=== PATIENT | male | born 1965 | race Caucasian/White ===

== ENCOUNTER 2021-10-01 10:14 | Outpatient (CLI) | payer OTHER, SELFPAY ==
--- NOTE | ~2021-10-01 | XR_ITS ---
XR lumbar spine 2-3V DATE: 10/01/2021 10:37 INDICATION: Chronic back pain. No injury. TECHNIQUE: AP, lateral, coned lateral lumbosacral views COMPARISON: 12/02/2005 lumbar spine FINDINGS: The lumbar vertebrae are normally aligned. No fracture or bone destruction or spondylolisth esis. The lumbar pedicles are intact. There is moderately severe degenerative disc disease at L1-2 and L5-S1. There is minimal degenerative disc disease at the remaining lumbar interspaces. The sacroiliac joints are intact. IMPRESSION: Moderately severe degenerative disc disease at L1-2 and L5-S1 Reviewed, dictated and finalized at location A.
--- NOTE | ~2021-10-01 | XR_ITS ---
XR thoracic spine 2V DATE: 10/01/2021 10:37 INDICATION: Back pain, radiculopathy TECHNIQUE: AP, lateral and swimmer views COMPARISON: 10/01/2021 lumbar spine FINDINGS: There is minimal levoscoliosis of the upper thoracic spine. No fracture or dislocation or b one destruction. The thoracic pedicles are intact. No paraspinal soft tissue thickening. IMPRESSION: No significant abnormality Reviewed, dictated and finalized at location A. IMPRESSION: No significant abnormality
--- NOTE | ~2021-10-01 | XR_ITS ---
XR cervical spine 4-5V DATE: 10/01/2021 10:37 INDICATION: Chronic neck and back pain. No injury. TECHNIQUE: AP, open-mouth, lateral, swimmer views COMPARISON: 03/07/2016 cervical spine FINDINGS: C1 and C2 are normally aligned and the odontoid process is intact. No fracture or dislocati on or locked facet or prevertebral soft tissue swelling. There is minimal anterolisthesis at C4-5 and C5-6. There is mild degenerative disc disease at C5-6 an d moderate moderate degenerative disc disease at C6-7. There is degenerative change at the apophyseal joints, particularly at C5-6 and C6-7. IMPRESSION: Cervical spondylosis Reviewed, dictated and finalized at location A. IMPRESSION: Cervical spondylosis
== END 2021-10-01 10:15 | disposition home or self-care (01) ==
PROVIDERS: PCP Pain Medicine Interventional Pain Medicine; Visit Provider Pain Medicine Interventional Pain Medicine
DX: F33.1 Major depressive disorder, recurrent, moderate (principal); F41.1 Generalized anxiety disorder; G89.4 Chronic pain syndrome; M47.22 Other spondylosis with radiculopathy, cervical region; M47.23 Other spondylosis with radiculopathy, cervicothoracic region; M47.24 Other spondylosis with radiculopathy, thoracic region; M51.37 Other intervertebral disc degeneration, lumbosacral region; M51.36 Other intervertebral disc degeneration, lumbar region
CPT/HCPCS: 72050; 72070; 72100

== ENCOUNTER 2022-12-29 11:40 | Outpatient (CLI) | payer OTHER, SELFPAY ==
--- NOTE | ~2022-12-29 | XR_ITS ---
XR thoracic spine 3V DATE: 12/29/2022 12:08 INDICATION: Right shoulder pain. Back pain. TECHNIQUE: AP, lateral, swimmer views COMPARISON: None FINDINGS: There is degenerative spurring of the thoracic spine, most pronounced at the thoracolumbar area. No fracture or dislocation or bone destruction is evident. The thoracic pedicles are intact. No paraspinal soft tissue thickening. IMPRESSION: Degenerative spurring; no fracture or bone destruction is detected Reviewed, dictated and finalized at location A.
--- NOTE | ~2022-12-29 | XR_ITS ---
XR lumbar spine 2-3V DATE: 12/29/2022 12:08 INDICATION: Back pain TECHNIQUE: AP, lateral, coned lateral lumbosacral views COMPARISON: None FINDINGS: Moderate degenerative disc disease and spurring at L1-2. Moderately severe degenerative disc disease at L5-S1. No fracture or bone destruction is evident. The lumbar pedicles are intact. No spondylolisthesis. The sacroiliac joints are intact. IMPRESSION: Degenerative disc disease, greatest at L1-2 and L5-S1 Reviewed, dictated and finalized at location A.
--- NOTE | ~2022-12-29 | XR_ITS ---
XR cervical spine 4-5V DATE: 12/29/2022 12:07 INDICATION: Right shoulder pain. Neck, back pain. TECHNIQUE: AP, open-mouth, lateral and swimmer views COMPARISON: 10/01/2021 cervical spine FINDINGS: No fracture or dislocation or locked facet. C1 and C2 are normally aligned and the odontoid process is intact. Slight anterolisthesis at C4-5 and C5-6, stable since 10/01/2021. Moderate degenerative disc disease a t C6-7... Uncovertebral joint spurring appears prominent on the left at C6-7. IMPRESSION: Moderate cervical spondylosis Reviewed, dictated and finalized at location A.
== END 2022-12-29 11:41 | disposition home or self-care (01) ==
PROVIDERS: PCP Pain Medicine Interventional Pain Medicine; Visit Provider Pain Medicine Interventional Pain Medicine
DX: M54.17 Radiculopathy, lumbosacral region (principal); M54.14 Radiculopathy, thoracic region; M54.12 Radiculopathy, cervical region; M51.37 Other intervertebral disc degeneration, lumbosacral region; M46.04 Spinal enthesopathy, thoracic region; M43.02 Spondylolysis, cervical region
CPT/HCPCS: 72050; 72072; 72100

== ENCOUNTER 2024-02-11 08:50 | Outpatient (CLI) | payer OTHER, SELFPAY ==
--- NOTE | ~2024-02-11 | XR_ITS ---
EXAMINATION: XR thoracic spine 3V DATE: 02/11/2024 09:21 INDICATION: Thoracic radiculopathy. TECHNIQUE: 3 views of thoracic spine on 4 radiographs were obtained. COMPARISON: Thoracic spine radiographs 12/29/2022 FINDINGS: There is 6 degrees dextrocurvature of thoracic spine. Vertebral body heights are normal. In tervertebral disc heights are normal. There are endplate osteophytes at a few levels. IMPRESSION: 1. Mild thoracic spondylosis. Reviewed, dictated and finalized at location B.
--- NOTE | ~2024-02-11 | XR_ITS ---
EXAMINATION: XR_[id number]_CR DATE: 02/11/2024 09:21 INDICATION: Cervical radiculopathy. TECHNIQUE: 3 views of cervical spine were obtained. COMPARISON: Cervical spine radiographs 12/29/22 FINDINGS: There is 7 degrees levocurvature of cervicothoracic spine. Vertebral body heights are shawanda l. There is mildly decreased disc height at C5-C6 and moderately decreased disc height at C6-C7. Ther e is multilevel mild facet joint osteoarthritis. No central canal stenosis or prevertebral soft tissu e swelling. IMPRESSION: 1. Moderate cervical spondylosis. Reviewed, dictated and finalized at location B.
--- NOTE | ~2024-02-11 | XR_ITS ---
EXAMINATION: XR lumbar spine 2-3V DATE: 02/11/2024 09:21 INDICATION: Lumbar radiculopathy. TECHNIQUE: 3 views of lumbar spine were obtained. COMPARISON: Lumbar spine radiographs 12/29/2022 FINDINGS: Alignment is normal. There is mild chronic anterior wedging of T12 and L1 vertebral bodies. There is mildly decreased disc height at L1-L2 and L4-L5 and severely decreased disc height at L5-S1 . There is multilevel facet joint osteoarthritis, severe in lower lumbar spine. IMPRESSION: 1. Severe lower lumbar spondylosis. Reviewed, dictated and finalized at location B.
== END 2024-02-11 08:51 | disposition home or self-care (01) ==
PROVIDERS: PCP Pain Medicine Interventional Pain Medicine; Visit Provider Pain Medicine Interventional Pain Medicine
DX: F33.1 Major depressive disorder, recurrent, moderate (principal); F41.1 Generalized anxiety disorder; M47.22 Other spondylosis with radiculopathy, cervical region; M47.23 Other spondylosis with radiculopathy, cervicothoracic region; M47.24 Other spondylosis with radiculopathy, thoracic region; M47.896 Other spondylosis, lumbar region
CPT/HCPCS: 72040; 72072; 72100